=== PATIENT | female | born 1970 | race Caucasian/White ===

== ENCOUNTER 2017-02-20 13:11 | Outpatient (CLI) | payer OTHER ==
--- NOTE | 2017-02-20 13:44 | Diagnostic Imaging Report ---
LORE CHISHOLM [facility] [address] [facility].[address] [id number] Report Submission Date: Feb 20, 2017 1:30:27 PM CDT Patient Study Name: KATE ZAMORA Date: Feb 20, 2017 1:13:20 PM CDT Modality Type: CR Gender: F Description: LOWER EXTREMITY : 68 Institution: [facility] Physician: LORE CHISHOLM Examination: Plain film foot History: Possible fracture Findings: 3 views of the foot demonstrates fracture involving the base of the proximal phalanx 4th digit. Inferior calcaneal spur. No soft tissue swelling. No joint effusion. Impression: Fracture base proximal phalanx 4th digit Electronically signed on Feb 20, 2017 1:30:27 PM CDT by: Lee RIVERA
== END 2017-02-20 14:00 ==
LOC: RAD 13:11
PROVIDERS: ATTEND Family Medicine
DX: M84.475D Pathological fracture, left foot, subsequent encounter for fracture with routine healing (principal)
CPT/HCPCS: 73630